=== PATIENT | male | born 2000 | race Caucasian/White ===

== ENCOUNTER 2022-05-02 17:40 | Emergency (ER) | payer SELFPAY ==
[2022-05-02 17:50] VITALS: BP 106/67; PULSE 71; RESP 16; TEMP 37; O2SAT 99; BMI 24.3
== END 2022-05-02 22:54 | disposition left against medical advice (07) ==
LOC: HO.ED 22:03
PROVIDERS: Emergency Provider Emergency Medicine
DX: S01.511A Laceration without foreign body of lip, initial encounter (principal); W50.0XXA Accidental hit or strike by another person, initial encounter; Y93.68 Activity, volleyball (beach) (court); Y92.318 Other athletic court as the place of occurrence of the external cause; Y99.9 Unspecified external cause status
CPT/HCPCS: 99281